=== PATIENT | male | born 1970 | race Caucasian/White ===

== ENCOUNTER 2017-06-13 16:06 | Emergency (ER) | payer OTHER, SELFPAY ==
[2017-06-13 16:06] VITALS: BP 153/98; PULSE 91; RESP 14; TEMP 36.9; O2SAT 99; BMI 31.5
[2017-06-13 16:35] VITALS: BP 155/97; PULSE 89; RESP 20; TEMP 36.6; O2SAT 97; BMI 28.7
--- NOTE | 2017-06-13 16:58 | HMH.EDUTC ---
[facility] [place]: Epistaxis Disposition: Home, Self-Care Condition on Discharge: Good Instructions: Nosebleed, DI for Nosebleed, Nosebleeds (Alternative Therapy) Additional Instructions: Find family doctor on list that you was provided and follow up as recommended Return if needed Ice to nose if bleeding return Follow up with Ears Nose and throat if eppisodes of nose bleeds continue Straight to ER if you began having a nose bleed you cannot control Referrals: Provider,Referral, [Primary Care Provider] - Zach Gaspar MD [Physician] - Time of Disposition: 17:14 Medical Decision Making - Medical Records Medical records reviewed: Yes: I reviewed the patient's medical records. Vital Signs: 06/13/17 16:06 06/13/17 16:35 Temperature 98.5 F 97.9 F Temperature Source Oral Temporal Artery Scan Pulse Rate [Left Radial] 91 H 89 Respiratory Rate 14 20 Blood Pressure [Left Arm] 153/98 155/97 Blood Pressure Mean [Left Arm] 116 116 Blood Pressure Source [Left Arm] Automatic Cuff Automatic Cuff Blood Pressure Position [Left Arm] Sitting Sitting 02 Sat by Pulse Oximetry 99 97 Oxygen Delivery Method Room Air Room Air - Thaddeus Inquiry Pt receiving controlled substance: No Thaddeus was queried for this patient: No [facility] [place] - General Stated complaint: 2 Nose Bleeds in 3 hours Mode of Arrival: Ambulatory Source of Information: Patient Limitations: No Limitations Description of Symptoms (Recalled from Triage Doc. 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 HEENT Symptoms (Recalled from RN notes): Yes (nosebleed after working outside this am) Resp Symptoms (Recalled from RN notes): No Skin Symptoms (Recalled from RN notes): No MS Symptoms (Recalled from RN notes): No Functional Status (Recalled from RN notes): n/a - History of Present Illness Provider Complaint: Patient states that he has been working outside in the cold and running in and out of the house State that the house has gas heat State that he feels like his sinuses got dry and started to bleed but his was worried and made him come in State that he has not had any problems prior to this, Denies HTN, denies injury State that nose bleed twice and was easily controlled with light pressure - Related Data Home Medications Medication Instructions Recorded Confirmed No Known Home Medications [No 06/13/17 06/13/17 Known Home Medications] Allergies Allergy/AdvReac Type Severity Reaction Status Date / Time No Known Allergies Allergy Verified 06/13/17 16:40 - Worker's Comp Is this a Worker's Comp case?: No [facility] History I have reviewed the patient's past medical history: Yes Medical History: Denies:: Cancer, Diabetes Mellitus Type 1, Diabetes Mellitus Type 2, MRSA Laterality Cases: Bilateral: Tonsillectomy Amputation: No Fractures: No - *Social History Smoking Status: Current every day smoker Tobacco Type: cigarettes Alcohol Intake: never - Psychiatric History Expresses thoughts of harming self/others: None Suicide Plan Description: No Plan ROS Obtained: Yes All systems reviewed & no additional complaints - Cardiovascular Cardiovascular: Denies chest pain, Denies lightheadedness, Denies palpitations Physical Exam - General General appearance: alert, in no apparent distress - Expanded ENT Exam Nose exam: Present: other Nasal speculum exam: Bilateral: other (small amount of dried blood noted in nares, no active bleeding at this time) - Respiratory Respiratory exam: Present: normal lung sounds bilaterally. Absent: respiratory distress - Cardiovascular Cardiovascular exam: Present: regular rate, normal rhythm. Absent: JVD - Abdominal Exam Abdominal exam: Present: soft, normal bowel sounds. Absent: distention, tenderness, guarding - Neurological Exam Neurological exam: Present: alert, oriented X3
--- NOTE | 2017-06-13 17:09 | ED_ITS ---
[facility] [place] [facility] [place] Clinical Impression: Epistaxis Disposition: Home, Self-Care Condition on Discharge: Good Instructions: Nosebleed, DI for Nosebleed, Nosebleeds (Alternative Therapy) Additional Instructions: Find family doctor on list that you was provided and follow up as recommended Return if needed Ice to nose if bleeding return Follow up with Ears Nose and throat if eppisodes of nose bleeds continue Straight to ER if you began having a nose bleed you cannot control Referrals: Provider,Referral, [Primary Care Provider] - Zach Gaspar MD [Physician] - Time of Disposition: 17:14 Medical Decision Making - Medical Records Medical records reviewed: Yes: I reviewed the patient's medical records. Vital Signs: 06/13/17 16:06 06/13/17 16:35 Temperature 98.5 F 97.9 F Temperature Source Oral Temporal Artery Scan Pulse Rate [Left Radial] 91 H 89 Respiratory Rate 14 20 Blood Pressure [Left Arm] 153/98 155/97 Blood Pressure Mean [Left Arm] 116 116 Blood Pressure Source [Left Arm] Automatic Cuff Automatic Cuff Blood Pressure Position [Left Arm] Sitting Sitting 02 Sat by Pulse Oximetry 99 97 Oxygen Delivery Method Room Air Room Air - Thaddeus Inquiry Pt receiving controlled substance: No Thaddeus was queried for this patient: No [facility] [place] [facility] [place] - General Stated complaint: 2 Nose Bleeds in 3 hours Mode of Arrival: Ambulatory Source of Information: Patient Limitations: No Limitations Description of Symptoms (Recalled from Triage Doc. 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 HEENT Symptoms (Recalled from RN notes): Yes (nosebleed after working outside this am) Resp Symptoms (Recalled from RN notes): No Skin Symptoms (Recalled from RN notes): No MS Symptoms (Recalled from RN notes): No Functional Status (Recalled from RN notes): n/a - History of Present Illness Provider Complaint: Patient states that he has been working outside in the cold and running in and out of the house State that the house has gas heat State that he feels like his sinuses got dry and started to bleed but his was worried and made him come in State that he has not had any problems prior to this, Denies HTN, denies injury State that nose bleed twice and was easily controlled with light pressure - Related Data Home Medications Medication Instructions Recorded Confirmed No Known Home Medications [No 06/13/17 06/13/17 Known Home Medications] Allergies Allergy/AdvReac Type Severity Reaction Status Date / Time No Known Allergies Allergy Verified 06/13/17 16:40 - Worker's Comp Is this a Worker's Comp case?: No [facility] History I have reviewed the patient's past medical history: Yes Medical History: Denies:: Cancer, Diabetes Mellitus Type 1, Diabetes Mellitus Type 2, MRSA Laterality Cases: Bilateral: Tonsillectomy Amputation: No Fractures: No - *Social History Smoking Status: Current every day smoker Tobacco Type: cigarettes Alcohol Intake: never - Psychiatric History Expresses thoughts of harming self/others: None Suicide Plan Description: No Plan ROS Obtained: Yes All systems reviewed & no additional complaints - Cardiovascular Cardiovascular: Denies chest pain, Denies lightheadedness, Denies palpitations Physical Exam - General General appearance: alert, in no apparent distress - Expanded
[2017-06-13 17:23] VITALS: BP 155/97; PULSE 89; RESP 20; TEMP 36.6; O2SAT 97
== END 2017-06-13 17:36 | disposition home or self-care (01) ==
PROVIDERS: Emergency Provider Nurse Practitioner
DX: R04.0 Epistaxis (principal); F17.210 Nicotine dependence, cigarettes, uncomplicated
CPT/HCPCS: 99202

== ENCOUNTER → 2017-06-19 15:43 | Outpatient (CLI) | payer OTHER, SELFPAY ==
[2017-06-19 16:10] LABS: Basophils # 0.1 K/mm3 (0-0.2); Basophils % 0.9 % (0.1-2.0); Eosinophils # 0.2 K/mm3 (0.0-0.4); Hematocrit 47.4 % (42.0-52.0); Hemoglobin 16.1 g/dL (14.1-18.0); Lymphocytes % 29.5 K/mm3 (10-50); Mean Corpuscular HGB Conc 33.9 g/dL (31.8-35.4); Mean Corpuscular Hemoglobin 30.9 pg (27.0-31.2); Mean Corpuscular Volume 91.3 fl (80-94); Mean Platelet Volume 8.3 fl (7.4-10.4); Monocytes # 0.5 K/mm3 (0.1-1.0); Neutrophils # 6.2 K/mm3 (1.8-7.8); Neutrophils % 62.5 % (37.0-80.0); Platelet Count 266 K/mm3 (142-424); Red Blood Count 5.19 M/mm3 (4.60-6.20); Red Cell Distribution Width 13.8 % (11.5-17.5)
[2017-06-19 16:22] LABS: Activated Partial Thrombo Time 25.9 seconds (23.6-34.0); INR 0.99 (0.9-1.1); Prothrombin Time 10.7 seconds (9.4-11.8)
== END ==
PROVIDERS: Visit Provider Otolaryngology
DX: R04.0 Epistaxis (principal)
CPT/HCPCS: 36415; 85025; 85610; 85730

== ENCOUNTER 2017-06-20 00:48 | Emergency (ER) | payer OTHER, SELFPAY ==
[2017-06-20 00:54] VITALS: BP 161/87; PULSE 90; RESP 16; TEMP 36.9; O2SAT 99; BMI 31.5
--- NOTE | 2017-06-20 01:40 | HMH.EDEPIS ---
ED Disposition Clinical Impression: Epistaxis Disposition: Home, Self-Care Condition on Discharge: Good Instructions: DI for Nosebleed Additional Instructions: see dr miller for follow up - Critical Care Critical Care Time: No Attestation: On , the high probability of a clinically significant, sudden or life threatening deterioration of the following system(s) required my full and direct attention, intervention and personal management. The time I documented below is in addition to time spent performing reported procedures but includes the following listed in this critical care notation. Medical Decision Making - Medical Records Medical records reviewed: Yes: I reviewed the patient's medical records. Vital Signs: 06/20/17 00:54 Temperature 98.4 F Temperature Source Oral Pulse Rate [Brachial] 90 Respiratory Rate 16 Blood Pressure [Right Arm] 161/87 Blood Pressure Mean [Right Arm] 111 Blood Pressure Source [Right Arm] Automatic Cuff Blood Pressure Position [Right Arm] Sitting 02 Sat by Pulse Oximetry 99 Oxygen Delivery Method Room Air - Lab Data Lab results reviewed: Yes: I reviewed the patient's lab results. Orders (Tests/Meds): ORDERS Category Date Time Status BMP [Basic Metabolic Panel] Stat Lab 06/20/17 02:02 Received CBC [Complete Blood Count Auto Diff] Stat Lab 06/20/17 02:02 Received - Physician Consults Physician Consulted: paul Reason -: Pt condition - Thaddeus Inquiry Pt receiving controlled substance: No Epistaxis HPI - General Chief complaint: Epistaxis Stated complaint: nose bleed Time Seen by Provider: 06/20/17 01:40 Mode of Arrival: Ambulatory Source of Information: Patient, Significant Other, Medical Record Limitations: No Limitations Description of Symptoms (Recalled from ER Triage Doc. by RN): NOSE BLEED, HAD PACKING PLACED TODAY BY ENT - History of Present Illness HPI Narrative: pt with lt sided nose bleed over the last week with pt seen by ent- dr miller this am - pt with post oozing with spitting blood complaint: epistaxis Location: left nostril Onset (ago): week(s) Duration: intermittent Treatment prior to arrival: other (has seen ent ) - Related Data Home Medications Medication Instructions Recorded Confirmed No Known Home Medications [No 06/13/17 06/13/17 Known Home Medications] Allergies Allergy/AdvReac Type Severity Reaction Status Date / Time No Known Allergies Allergy Verified 06/19/17 14:15 [facility] History I have reviewed the patient's past medical history: Yes Medical History: Denies:: Cancer, Diabetes Mellitus Type 1, Diabetes Mellitus Type 2, MRSA Laterality Cases: Bilateral: Tonsillectomy Amputation: No Fractures: No - *Social History Smoking Status: Current every day smoker Tobacco Type: cigarettes #Yrs smoked (if former smoker): 30 Alcohol Intake: current Alcohol Intake Frequency:: a few times a month Substance Use Type: denies use - Psychiatric History Expresses thoughts of harming self/others: None Suicide Plan Description: No Plan *Family Hx:: Hypertension, Diabetes ROS Obtained: Yes All systems reviewed & no additional complaints - Constitutional Constitutional: Denies fever(s) - Eyes Eyes: Denies change in vision - ENT Ears, Nose, Mouth, and Throat: Reports as per HPI, Reports epistaxis - Cardiovascular Cardiovascular: Denies chest pain at rest - Respiratory Respiratory: No chest congestion, No cough - Gastrointestinal Gastrointestingal: Denies: vomiting - Musculoskeletal Musculoskeletal: Denies joint pain, Denies joint stiffness - Integumentary/Breasts Skin/Breast: Denies rash - Neurologic Neurologic: Denies dizziness, Denies seizure-like activity Physical Exam - General General appearance: alert, in no apparent distress - Head Head exam: atraumatic - Eye Eye exam: Present: PERRL, EOMI. Absent: scleral icterus - Expanded ENT Exam Nasal speculum exam: Left
[2017-06-20 02:29] LABS: Basophils # 0.1 K/mm3 (0-0.2); Basophils % 0.6 % (0.1-2.0); Eosinophils # 0.2 K/mm3 (0.0-0.4); Eosinophils % 1.7 % (0.1-12.0); Hematocrit 43.9 % (42.0-52.0); Hemoglobin 14.9 g/dL (14.1-18.0); Lymphocytes # 3.2 K/mm3 (0.7-4.5); Lymphocytes % 29.3 K/mm3 (10-50); Mean Corpuscular Hemoglobin 30.9 pg (27.0-31.2); Mean Platelet Volume 8.5 fl (7.4-10.4); Monocytes # 0.5 K/mm3 (0.1-1.0); Monocytes % 4.9 % (1.7-9.3); Neutrophils # 6.9 K/mm3 (1.8-7.8); Neutrophils % 63.5 % (37.0-80.0); Platelet Count 261 K/mm3 (142-424); Red Blood Count 4.82 M/mm3 (4.60-6.20); Red Cell Distribution Width 13.8 % (11.5-17.5); White Blood Count 10.9 K/mm3 (4.8-10.8)
[2017-06-20 02:37] LABS: Blood Urea Nitrogen 14 mg/dL (7-18); Carbon Dioxide 25 mmol/L (21.0-32.0); Chloride 105 mmol/L (98-107); Creatinine Clearance Estimated 145 mL/min (0-300); Creatinine,Serum 0.89 mg/dL (0.70-1.30); Estimated Glomerular Filt Rate 92 ml/min (>60); GFR (African American) 111 ML/MIN (>60); Glucose 91 mg/dL (74-106); Sodium 138 mmol/L (136-145)
== END 2017-06-20 02:50 | disposition home or self-care (01) ==
PROVIDERS: Emergency Provider Emergency Medicine
DX: R04.0 Epistaxis (principal); F17.210 Nicotine dependence, cigarettes, uncomplicated
CPT/HCPCS: 80048; 85025; 99282